=== PATIENT | male | born 1990 | race African-American/Black ===

== ENCOUNTER 2019-11-11 20:30 | Emergency (ER) | payer SELFPAY ==
[2019-11-11] MEDS ORDERED: Ketorolac Tromethamine 30 MG/ML VIAL ONE (20:49)
== END 2019-11-11 21:04 | disposition home or self-care (01) ==
LOC: ERS 20:30
DX: K03.81 Cracked tooth (principal); F17.210 Nicotine dependence, cigarettes, uncomplicated; J45.909 Unspecified asthma, uncomplicated
CPT/HCPCS: 96374; J1885

== ENCOUNTER 2022-04-21 08:09 | Emergency (ER) | payer SELFPAY ==
[2022-04-21 08:36] LABS: Bacteria/HPF 1+ HPF (None Seen); Bilirubin Negative (Negative); Blood, Urine Negative (Negative); Clarity Clear (Clear); Glucose, Urine (Dipstick) Normal (Negative); Ketone, Urine Negative (Negative); Leukocyte 500 Leu/uL (Negative); Nitrite Negative (Negative); Protein, Urine (Dipstick) Negative (Neg-Trace); RBC/HPF 0-3 HPF (0-3); Specific Gravity, Urine 1.008 (1.002-1.036); Squamous Epithelial None Seen HPF (0-3); Urobilinogen Normal mg/dL (Less than 2); WBC/HPF Greater than 50 HPF (0-3); pH, Urine 5.5 (5.0-9.0)
[2022-04-21 08:40] LABS: #Eosinphils 0.3 thou/uL (0.0-0.7); #Lymphocytes 3.6 thou/uL (1.20-3.40); #Monocytes 0.5 thou/uL (0.11-0.59); %Basophils 0.5 % (0.0-1.0); %Lymphocytes 48.3 % (21.0-51.0); %Monocytes 6.2 % (0.0-10.0); %Neutrophils 41.1 % (42.0-75.0); Mean Corpuscular HGB CONC 31.7 g/dL (32.0-36.0); Mean Corpuscular Hemoglobin 30.6 pg (27.0-31.0); Mean Corpuscular Volume 96.7 fL (78.0-98.0); Mean Platelet Volume 8.3 fL (7.4-10.4); Platelet Count 226 thou/uL (130-400); RBC Distribution Width 11.9 % (11.5-14.5); Red Blood Cell (RBC) Count 5.55 mill/uL (4.70-6.10); White Blood Cell (WBC) Count 7.4 thou/uL (4.8-10.8)
[2022-04-21 08:57] LABS: ALT (SGPT) 10 U/L (8-55); AST (SGOT) 20 U/L (5-34); Albumin 5.1 g/dL (3.5-5.0); Alkaline Phosphatase 26 U/L (40-110); Anion Gap 16 mmol/L (10-20); BUN (Urea Nitrogen) 13 mg/dL (8.9-20.6); Bilirubin, Total 0.4 mg/dL (0.2-1.2); Calc. Creatinine Clearance 0 mL/min (70-130); Calcium 9.8 mg/dL (7.8-10.44); Carbon Dioxide 24 mmol/L (22-29); Chloride 108 mmol/L (98-107); Globulin 3.6 g/dL (2.4-3.5); Glucose 96 mg/dL (70-105); Potassium 4.9 mmol/L (3.5-5.1); Protein, Total 8.7 g/dL (6.0-8.3); Sodium 143 mmol/L (136-145)
[2022-04-22 15:30] LABS: Chlam.trachomatis by PCR,Urine Not Detected (NotDetected)
== END 2022-04-21 09:06 | disposition home or self-care (01) ==
LOC: ERS 08:09
DX: N39.0 Urinary tract infection, site not specified (principal); J45.909 Unspecified asthma, uncomplicated; F17.210 Nicotine dependence, cigarettes, uncomplicated
CPT/HCPCS: 36415; 80053; 81003; 81015; 85025; 87086; 87491; 87591; 99283

== ENCOUNTER 2022-04-23 12:14 | Emergency (ER) | payer SELFPAY ==
[2022-04-23] MEDS ORDERED: cefTRIAXone\\ROCEPHIN 500 MG VIAL ONE (12:36)
[2022-04-23] MEDS ORDERED: Lidocaine 1% PF 5 ML VIAL ONE (12:36)
== END 2022-04-23 13:07 | disposition home or self-care (01) ==
LOC: ERS 12:14
DX: A54.9 Gonococcal infection, unspecified (principal); F17.210 Nicotine dependence, cigarettes, uncomplicated
CPT/HCPCS: 96372; 99283; J0696

== ENCOUNTER 2022-07-16 07:33 | Emergency (ER) | payer SELFPAY ==
[2022-07-16] MEDS ORDERED: Ketorolac Tromethamine 30 MG/ML VIAL ONE (07:58)
== END 2022-07-16 08:04 | disposition home or self-care (01) ==
LOC: ERS 07:33
DX: T63.421A Toxic effect of venom of ants, accidental (unintentional), initial encounter (principal)
CPT/HCPCS: 96372; 99283; J1885

== ENCOUNTER 2025-08-04 12:01 | Emergency (ER) | payer SELFPAY ==
[2025-08-04] MEDS ORDERED: Ketorolac Tromethamine 30 MG (1 mL) VIAL ONE (12:39)
== END 2025-08-04 13:21 | disposition home or self-care (01) ==
LOC: ERS 12:01
DX: M54.6 Pain in thoracic spine (principal); F17.210 Nicotine dependence, cigarettes, uncomplicated
CPT/HCPCS: 93005; 99282; J1885